=== PATIENT | male | born 1970 | race Two or more races ===

== ENCOUNTER 2024-01-29 08:06 | Emergency (ER) | payer OTHER ==
[~2024-01-29] VITALS: Ht 170.2 cm; Wt 97.1 kg
[2024-01-29] MEDS ORDERED: IBUPROFEN 600 MG TABLET ONE (08:19)
[2024-01-29] MEDS ORDERED: ACETAMINOPHEN ES 500 MG TABLET ONE (08:19)
[2024-01-29] MEDS: IBUPROFEN 600 MG TABLET PO ONE (08:21)
[2024-01-29] MEDS: ACETAMINOPHEN ES 500 MG TABLET PO ONE (08:21)
[2024-01-29 08:49] VITALS: BP 140/72; TEMP 98.9; O2SAT 99
== END 2024-01-29 08:56 | disposition home or self-care (01) ==
LOC: ER 08:10
DX: J18.9 Pneumonia, unspecified organism (principal); R06.02 Shortness of breath